=== PATIENT | male | born 1960 | race Caucasian/White ===

== ENCOUNTER 2023-09-20 11:10 | Inpatient (IN) | payer MEDICARE, MEDICAID, SELFPAY ==
[2023-09-20] VITALS (8 sets, daily range): BP systolic 104–154; BP diastolic 68–99; PULSE 80–102; RESP 12–20; TEMP 36.2–36.9; O2SAT 98–100; BMI 20.9
--- NOTE | ~2023-09-20 | CT_ITS ---
EXAMINATION: CT FACIAL BONES WITH CONTRAST CLINICAL INFORMATION: tooth pain, evaluate for possible abscess COMPARISON: None available. TECHNIQUE: CT images of the paranasal sinuses were acquired following intravenous administration of 85 mL Omnipaque 350. This CT examination was performed using dose optimization techniques as appropriate, variously including the following: *Automated exposure control *Adjustment of mA and/or kV according to patient size (this includes techniques or standardized protocols for targeted exams where dose is matched to indication/reason for exam; i.e. extremities or head) *Use of iterative reconstruction technique DLP: 263 mGy-cm COMPARISON: None available FINDINGS: Carious left mandibular second premolar tooth with asymmetric significant thickening of the adjacent left mandibular gingivobuccal soft tissues. There is stranding within the left perimandibular facial soft tissues tracking caudally into the imaged suprahyoid neck with thickening of the left platysma with partially imaged stranding within the left submandibular triangle suspicious for odontogenic infection with cellulitis. Slight asymmetric infiltration of the left buccal fat pad. Query possible peripherally enhancing fluid collection embedded within left mandibular gingival mucosa along the anterior margin of the carious tooth measuring 4 mm (image 96, series 7) which could reflect a small/developing abscess. No periapical disease nor findings to suggest mandibular osteomyelitis. Partially imaged enhancing nonpathologic size criteria reactive left level 1B lymph nodes. Partially imaged mild global cerebral volume loss. The imaged intracranial vasculature opacifies normally. The orbits are unremarkable. Slight anterior leftward nasal septal deviation with rightward deviation more posteriorly with prominent rightward bony spur. The paranasal sinuses are clear without fluid levels. The mastoid air cells and middle ear cavities are clear. Cerumen within the external auditory canals. Hypertrophic degenerative changes across the anterior atlantodental interval. Vacuum phenomenon within the right lateral atlantodental interval. CT/CT facial bones w IV con IMPRESSION: Carious left mandibular second premolar tooth likely serving as the odontogenic source for left facial cellulitis centered within the left perimandibular region. Query possible peripherally enhancing fluid collection embedded within left mandibular gingival mucosa along the anterior margin of the carious tooth measuring 4 mm (image 96, series 7) which could reflect a early/developing abscess. No periapical disease nor findings to suggest mandibular osteomyelitis. Partially imaged enhancing nonpathologic size criteria reactive left level 1B lymph nodes.
--- NOTE | ~2023-09-20 | XR_ITS ---
EXAMINATION: XR CHEST 2 VIEW CLINICAL INFORMATION: Shortness of breath, difficulty breathing COMPARISON: None TECHNIQUE: PA and lateral views of the chest obtained. FINDINGS: The lungs are hyperinflated with relative lucency in the upper lung zones and the substernal airspace. There are no pleural effusions. The cardiomediastinal silhouette is normal. XR/XR chest 2V IMPRESSION: Hyperinflation suggesting underlying COPD. Otherwise, no acute cardiopulmonary disease.
--- NOTE | 2023-09-20 11:38 | ECG_ITS ---
Test Reason : SOB Blood Pressure : / mmHG Vent. Rate : 098 BPM Atrial Rate : 000 BPM P-R Int : 000 ms QRS Dur : 102 ms QT Int : 340 ms P-R-T Axes : 000 010 068 degrees QTc Int : 434 ms Atrial fibrillation Nonspecific T wave abnormality Abnormal ECG No previous ECGs available Referred By: Nereyda Araujo Electronically Signed By:Elier Ramos
[2023-09-20 12:08] LABS: MANUAL DIFF FLAG NO
--- NOTE | 2023-09-20 12:15 | ED.SOB ---
HPI - SOB/Dyspnea General Chief Complaint: Dyspnea Stated Complaint: LOSS OF APPETITE,EXCEPTIONAL DYSPNEA 99%RA PER EMS Time Seen by Provider: 09/20/23 12:08 History of Present Illness HPI Narrative: Patient is a 62-year-old female presents today with having episodes of shortness of breath. Patient claims he has a history of atrial fibrillation in the past. There is no fever no chills. No chest pain or diaphoresis. Has a primary physician at home. No coughing or congestion or upper respiratory symptoms. No history of blood clots in the past. No leg swelling. No trauma. No travel history. Patient from home. Related Data Allergies Allergy/AdvReac Type Severity Reaction Status Date / Time No Known Allergies Allergy Verified 09/20/23 11:29 Review of Systems Review of Systems: Positive shortness of breath especially with exertion no chest pain appreciated Yes all other systems are reviewed and are negative [facility] Past Medical History Attestation statement: The following information was validated with the patient. Medical History Hypertension Mood disorder Social History Social History Smoked in Last 30 Days: No Use of substances other than those prescribed or required for medical reasons: No Advance Directives: No Advance Directives Information Provided: No Do you have a plan to hurt others: No Plan Physical Exam Vital Signs: Vital Signs: Last Vital Signs Temp 97.6 F 09/20/23 11:49 Pulse 80 09/20/23 11:49 Resp 19 09/20/23 11:49 BP 154/99 H 09/20/23 11:49 Pulse Ox 99 09/20/23 11:49 O2 Del Method Room Air 09/20/23 11:49 BMI result Body Mass Index 20.9 Appearance: Alert. Oriented X3. No acute distress. Eyes: Pupils equal, round and reactive to light. ENT: Pharynx normal. Neck: Normal inspection. Neck supple. No lymph nodes noted. No crepitus CVS: Irregularly irregular Respiratory: No respiratory distress. Breath sounds normal. No Wheezing. No rales Abdomen: Soft and nontender. No rigidity. No distention. good BS x4 Skin: Skin warm and dry. Normal skin color. Normal skin turgor. Extremities: No lower extremity edema. Neurovascular intact to all extremities. No Lacerations. No Rash Neuro: Oriented X 3. No motor deficit. No sensory deficit. Moving all extermities. No slurred speech Medical Decision Making Medical Decision Making [facility] Narrative: Patient presented with generalized malaise weakness. Very tired. Not quite right. Feels short of breath at times. My interpretation of patient's EKG shows an atrial fibrillation pattern heart rate is about 100 QRS is normal QTC is normal there has no acute ST segment elevation patient's feels very weak and tired electrolytes were checked. It turns out patient's sodium is 122. On review patient's medication he is on hydrochlorothiazide. Will ask patient to stop the medication. Will admit the patient for further monitoring. Currently in stable condition. Patient unlikely to have PE is D-dimer is grossly negative after age adjustment. BNP is 120 no evidence for congestive heart failure. Patient's hemoglobin is 12.8 there is no evidence for anemia. Differential Diagnosis Differential Diagnoses: The differential diagnosis associated with the presentation includes Hyponatremia, electrolytes disturbance, rhabdo, hypothyroid, ACS, AFib, upper respiratory infection, COVID, congestive heart failure, PE Admission/Observation Consideration of admission/observation: Escalation of care including admission/observation considered Consult Healthcare Provider Management of the patient was discussed with: Hospitalist Lab Data [facility] Lab Attestation statement: I reviewed the patient's lab results. 09/20/23 12:03 09/20/23 12:03 Labs: Lab Results 09/20/23 Range/Units 12:03 WBC 7.3 (4.8-10.8) X10*3/uL RBC 4.36 L (4.60-5.80) X10*6/uL Hgb 12.8 L (14.0-18.0) g/dl Hct 38.2 L (42.0-52.0) % MCV 87.6 (80.0-98.0) fL MCH 29.4 (27.0-33.0) pg MCHC 33.5 (31.0-36.0) g/dl RDW 12.3 (11.0-16.0) % Plt Count 176 (160-400) X10*3/uL MPV 176.0 H (9.4-12.4) fL Immature Gran % (Auto) 1.0 H (0.0-0.4) % Neut % (Auto) 71.4 (45-73) % Lymph % (Auto) 15.1 L (20-40) % [place] % (Auto) 11.5 H (2-11) % Eos % (Auto) 0.5 (0-4) % Baso % (Auto) 0.5 (0-2) % Lymph # (Auto) 1.1 L (1.2-4.9) X10*3/uL [place] # (Auto) 0.8 (0.1-1.2) X10*3/uL Eos # (Auto) 0.0 (0.0-0.4) X10*3/uL Baso # (Auto) 0.0 (0.0-0.2) X10*3/uL Abs Immat Gran (auto) 0.07 H (0.00-0.03) X10*3/uL Absolute Neuts (auto) 5.2 (2.0-8.3) x10*3/uL Absolute Nucleated RBC 0.000 (0.0-0.012) X10*3/uL Nucleated RBC % (auto) 0.0 (0.0-0.2) /100WBC PT 11.2 (11.1-13.3) SEC INR 0.9 (0.9-1.1) APTT 28.8 (26.0-36.8) SEC D-Dimer High Sensitivty 276 NG/ML Sodium 122 L (135-145) mmol/L Potassium 4.3 (3.3-5.1) mmol/L Chloride 85 L (96-108) mmol/L Carbon Dioxide 28 (22-29) mmol/L Anion Gap 13 (12-20) BUN 7 L (9-16) mg/dL Creatinine 0.88 (0.5-1.4) mg/dL Estim Creat Clear Calc 83.9 Estimated GFR > 60 Random Glucose 100 (60-115) mg/dL Calcium 10.2 (8.4-10.2) mg/dL Total Bilirubin 1.0 (0.0-1.0) mg/dL AST 14 (5-37) U/L ALT 17 (0-40) U/L Alkaline Phosphatase 64 (39-117) U/L Troponin I High Sens 5.2 (<3.5-35.0) ng/L B-Natriuretic Peptide 120 H (<100) pg/mL Total Protein 7.4 (6.5-8.0) g/dL Albumin 4.5 (3.5-5.0) g/dL TSH 1.37 (0.32-4.0) uIU/mL Independent Interpretation I performed an independent interpretation of an: EKG (Atrial fibrillation heart rate as about 100) Radiology Impression Discussion of test interpretation with radiology: I have reviewed the radiologist's reading. External Record Review External record reviewed: Office record Outpatient EKG reviewed outpatient medication reviewed Chronic Conditions Patient?s care impacted by: Hypertension Atrial fibrillation, hypertension Discharge Plan Discharge Clinical Impression: Acute hyponatremia Patient Disposition: Admitted As Inpatient
[2023-09-20 12:16] LABS: INTERNATIONAL NORM RATIO 0.9 (0.9-1.1); Prothrombin Time 11.2 SEC (11.1-13.3)
[2023-09-20 12:19] LABS: Partial Thromboplastin Time 28.8 SEC (26.0-36.8)
[2023-09-20 12:23] LABS: Alanine Aminotransferase 17 U/L (0-40); Albumin Level 4.5 g/dL (3.5-5.0); Alkaline Phosphatase 64 U/L (39-117); Anion Gap 13 (12-20); Aspartate Amino Transferase 14 U/L (5-37); Blood Urea Nitrogen 7 mg/dL (9-16); Calcium 10.2 mg/dL (8.4-10.2); Carbon Dioxide 28 mmol/L (22-29); Chloride 85 mmol/L (96-108); Creatinine Clr Calc Pharmacy 83.9; Estimated Glomerular Filt Rate > 60; Glucose Random 100 mg/dL (60-115); Potassium 4.3 mmol/L (3.3-5.1); Sodium 122 mmol/L (135-145); Total Protein 7.4 g/dL (6.5-8.0)
[2023-09-20 12:28] LABS: B Type Natriuretic Peptide 120 pg/mL (<100)
[2023-09-20 12:42] LABS: D Dimer High Sensitivity 276 NG/ML
[2023-09-20 12:54] LABS: Basophils Percent Auto 0.5 % (0-2); Eosinophils Percent Auto 0.5 % (0-4); Hematocrit 38.2 % (42.0-52.0); Imm Gran Abs Auto 0.07 X10*3/uL (0.00-0.03); Lymphocytes Absolute Auto 1.1 X10*3/uL (1.2-4.9); Lymphocytes Percent Auto 15.1 % (20-40); Mean Corpuscular Volume 87.6 fL (80.0-98.0); Monocytes Absolute Auto 0.8 X10*3/uL (0.1-1.2); Monocytes Percent Auto 11.5 % (2-11); Neutrophils Absolute Auto 5.2 x10*3/uL (2.0-8.3); Neutrophils Percent Auto 71.4 % (45-73); Red Blood Count 4.36 X10*6/uL (4.60-5.80); Red Cell Distribution Width 12.3 % (11.0-16.0)
[2023-09-20 12:55] LABS: Hemoglobin 12.8 g/dl (14.0-18.0); Mean Corpuscular HGB Conc 33.5 g/dl (31.0-36.0); Mean Corpuscular Hemoglobin 29.4 pg (27.0-33.0); Platelet Count 176 X10*3/uL (160-400); White Blood Count 7.3 X10*3/uL (4.8-10.8)
[2023-09-20 13:01] LABS: Troponin-I High Sensitivity 5.2 ng/L (<3.5-35.0)
--- NOTE | 2023-09-20 13:09 | P.HPHOSP_ITS ---
History of Present Illness Date of Service: 09/20/23 Chief Complaint: Generalized weakness This is a 62-year-old male with pertinent history of mood disorder, hypertension who presents to the emergency department for evaluation of generalized weakness. Patient states he has not been feeling well for some time . States that over the last 3 days he has been feeling weak with generalized fatigability. Also has been having difficulty walking long distances due to weakness/dyspnea. No history of asthma or COPD. Not on home inhalers. No history of CHF. No orthopnea, PND or leg edema. No cough. No fever or chills. Patient denies chest discomfort, palpitations, abdominal pain, changes in urinary or bowel habits. In the emergency department, sodium was found to be 122 Review of Systems 2 Constitutional: Constitutional: Reports fatigue, Reports malaise and Reports poor appetite Cardiovascular: Cardiovascular: Reports no additional cardiovascular complaints Respiratory: Respiratory: Reports no additional respiratory complaints Gastrointestinal: Gastrointestinal: Reports no additional gastrointestinal complaints Genitourinary: Genitourinary: Reports no additional male genitourinary complaints Endocrine: Endocrine: Reports fatigue [facility] Medical History Hypertension Mood disorder Pertinent family history: No family history of early CAD Social History Smoked in Last 30 Days: No Use of substances other than those prescribed or required for medical reasons: No Advance Directives: No Advance Directives Information Provided: No Do you have a plan to hurt others: No Plan Meds Allergies Allergy/AdvReac Type Severity Reaction Status Date / Time No Known Allergies Allergy Verified 09/20/23 11:29 Home Medications ?Medication ?Instructions ?Recorded ?Confirmed ?Last Taken ?Type amlodipine 10 mg tablet 10 mg PO DAILY 09/20/23 09/20/23 09/20/23 08:00 History bupropion HCl 200 mg tablet,12 hr 200 mg PO BID 09/20/23 09/20/23 09/20/23 08:00 History sustained-release clonazepam 0.5 mg tablet 1 mg PO QID 09/20/23 09/20/23 09/20/23 08:00 History hydrochlorothiazide 25 mg tablet 25 mg PO DAILY 09/20/23 09/20/23 09/20/23 08:00 History lisinopril 10 mg tablet 10 mg PO DAILY 09/20/23 09/20/23 09/20/23 08:00 History Physical Exam 2 Vital Signs and Narrative: Vital Signs: Last Vital Signs Temp 97.6 F 09/20/23 11:49 Pulse 80 09/20/23 11:49 Resp 19 09/20/23 11:49 BP 154/99 H 09/20/23 11:49 Pulse Ox 99 09/20/23 11:49 O2 Del Method Room Air 09/20/23 11:49 BMI result Body Mass Index 20.9 Middle-aged male lying in bed in no distress Neck supple, no JVD Regular rate and rhythm, S1-S2 heard Regular breath sounds bilaterally, no wheezing or crackles appreciated Abdomen soft nontender, no guarding, no rigidity Patient is awake, alert and oriented to self, place, time and person ; no focal motor deficit Psych: Normal mood No pedal edema Results Labs 09/20/23 12:03 09/20/23 12:03 Labs: Laboratory Results - last 24 hr 09/20/23 12:03 MCV 87.6 MCH 29.4 MCHC 33.5 RDW 12.3 Plt Count 176 MPV 176.0 H Immature Gran % (Auto) 1.0 H Neut % (Auto) 71.4 Lymph % (Auto) 15.1 L [place] % (Auto) 11.5 H Eos % (Auto) 0.5 Baso % (Auto) 0.5 Lymph # (Auto) 1.1 L [place] # (Auto) 0.8 Eos # (Auto) 0.0 Baso # (Auto) 0.0 Abs Immat Gran (auto) 0.07 H Absolute Neuts (auto) 5.2 Absolute Nucleated RBC 0.000 Nucleated RBC % (auto) 0.0 PT 11.2 INR 0.9 APTT 28.8 D-Dimer High Sensitivty 276 Anion Gap 13 Estim Creat Clear Calc 83.9 Estimated GFR > 60 Random Glucose 100 Calcium 10.2 Total Bilirubin 1.0 AST 14 ALT 17 Alkaline Phosphatase 64 Troponin I High Sens 5.2 B-Natriuretic Peptide 120 H Total Protein 7.4 Albumin 4.5 Assessment and Plan (1) Hyponatremia: Status: Acute Plan This is a 62-year-old male with pertinent history of mood disorder, hypertension who presents to the emergency department for evaluation of generalized weakness. #. Symptomatic Hyponatremia: Patient received fluids in the ER. Urine studies pending. Hold hydrochlorothiazide. Closely monitor serum sodium. #. Mood disorder: Continue home mood stabilizers #. Hypertension: Hold hydrochlorothiazide in the setting of hyponatremia DVT prophylaxis: Lovenox Full code Admit as inpatient and will require two night minimum hospital stay for close monitoring of serum sodium (as above), which is not possible in a lesser acute setting. Quality Stroke Does the patient have a stroke diagnosis?: No VTE Prior VTE?: No VTE Risk Level:: Medical - moderate - high VTE Device Contraindication: Treatment Not Indicated VTE Drug Contraindication: N/A - Med Ordered
[2023-09-20 13:13] LABS: Thyroid Stimulating Hormone 1.37 uIU/mL (0.32-4.0)
--- NOTE | 2023-09-20 13:59 | PHA.MEDREC ---
Pharmacy Consult ? Medication Reconciliation Pharmacy has completed the medication reconciliation. Confirmed medications with patient.
[2023-09-20 14:19] LABS: Osmolality, Serum 256 mosm/kg (281-305)
[2023-09-20] MEDS: 0.9 % Sodium Chloride 500 ML 999 ML IV (15:02)
[2023-09-20] MEDS: Enoxaparin Sodium 40 MG/0.4 ML SYRINGE SUBCUT (15:02)
[2023-09-20] MEDS: 0.9 % Sodium Chloride Flush 3 ML SYRINGE IVFLUSH (15:02)
--- NOTE | 2023-09-20 15:39 | PC.NURSE ---
alert and oriented with even and unlabored respirations. IV fluids infused, resting quietly in room watching tv.
--- NOTE | 2023-09-20 16:15 | MHC.EDTECH ---
THIS PCT ASSUMED CARE OF PATIENT AT 1500 ,VITALS TAKEN ,PATIENT STILL HAS HIS SHOES AND JEANS ON ,REFUSED TO TAKE THEM OFF.
--- NOTE | 2023-09-20 18:22 | PC.NURSE ---
complaining of left sided facial pain - states he has ongoing dental issues and feels that food got stuck in his tooth. provided with toothbrush per request to try to remove food. swelling noted to left jaw, pain medication ordered. respiratory at bedside for treatment.
[2023-09-20] MEDS: Albuterol/Iprat 2.5/0.5MG 3 ML AMPUL.NEB INHALE (18:25)
[2023-09-20] MEDS: Ketorolac Tromethamine 30 MG/ML VIAL IVPUSH (18:41)
[2023-09-20] MEDS: clonazePAM 1 MG TABLET PO ×2 (18:41→21:18)
[2023-09-20 19:23] LABS: Osmolality Urine 182 mosm/kg (373-1093)
[2023-09-20 19:24] LABS: Sodium Urine Random < 20.0 mmol/L
[2023-09-20 19:30] LABS: Anion Gap 16 (12-20); Blood Urea Nitrogen 9 mg/dL (9-16); Calcium 9.8 mg/dL (8.4-10.2); Carbon Dioxide 26 mmol/L (22-29); Chloride 87 mmol/L (96-108); Creatinine Clr Calc Pharmacy 87.9; Estimated Glomerular Filt Rate > 60; Glucose Random 156 mg/dL (60-115); Potassium 3.5 mmol/L (3.3-5.1); Sodium 125 mmol/L (135-145)
--- NOTE | 2023-09-20 19:44 | PC.NURSE ---
pt off unit to CT scan
[2023-09-20] MEDS: iohexoL 350 MG/ML 100 ML INFUS..BTL 85 ML IV (19:48)
[2023-09-21] MEDS: 0.9 % Sodium Chloride Flush 3 ML SYRINGE IVFLUSH ×2 (00:15→08:25)
[2023-09-21] MEDS: Ibuprofen 600 MG TABLET PO (02:41)
[2023-09-21 05:33] LABS: MANUAL DIFF FLAG NO
[2023-09-21 05:38] LABS: Basophils Percent Auto 0.4 % (0-2); Eosinophils Percent Auto 0.3 % (0-4); Hemoglobin 13.1 g/dl (14.0-18.0); Imm Gran Abs Auto 0.03 X10*3/uL (0.00-0.03); Imm Gran Pct Auto 0.4 % (0.0-0.4); Lymphocytes Absolute Auto 1.3 X10*3/uL (1.2-4.9); Lymphocytes Percent Auto 19.2 % (20-40); Mean Corpuscular HGB Conc 37.4 g/dl (31.0-36.0); Mean Corpuscular Hemoglobin 33.7 pg (27.0-33.0); Mean Platelet Volume 7.8 fL (9.4-12.4); Monocytes Absolute Auto 1.1 X10*3/uL (0.1-1.2); Monocytes Percent Auto 15.5 % (2-11); Neutrophils Absolute Auto 4.3 x10*3/uL (2.0-8.3); Neutrophils Percent Auto 64.2 % (45-73); Platelet Count 279 X10*3/uL (160-400); Red Blood Count 3.89 X10*6/uL (4.60-5.80); Red Cell Distribution Width 12.4 % (11.0-16.0); White Blood Count 6.8 X10*3/uL (4.8-10.8)
[2023-09-21 05:52] LABS: Anion Gap 12 (12-20); Blood Urea Nitrogen 8 mg/dL (9-16); Calcium 9.3 mg/dL (8.4-10.2); Carbon Dioxide 24 mmol/L (22-29); Chloride 91 mmol/L (96-108); Estimated Glomerular Filt Rate > 60; Glucose Random 144 mg/dL (60-115); Potassium 3.4 mmol/L (3.3-5.1); Sodium 124 mmol/L (135-145)
[2023-09-21 06:23] VITALS: BP 150/84; PULSE 96; RESP 16; TEMP 36.8; O2SAT 95
--- NOTE | 2023-09-21 07:00 | CA_ITS ---
Transthoracic Echocardiogram Patient (Last, First, Middle): Beltran Lopes G Gender: Male Date of : 1960 Age: 62 Procedure Date: 09/21/2023 Procedure Type: Transthoracic Echocardiogram Location: S3E Height: 182.88 cm Weight: 69.4 kg BSA: 1.90 m2 Heart Rate: bpm BP: 114 / 73 mmHg Advertising Teacher: SB Referring MD: Cesia Littlejohn MD Symptoms: dyspnea on exertion Study Quality: Adequate Conclusions: - Normal left ventricular size, thickness, systolic function, and wall motion. The visually estimated ejection fraction is between 55-60%. Diastolic function is normal for age. - Normal right ventricular cavity size and systolic function. Findings Left Ventricle Normal left ventricular size, thickness, systolic function, and wall motion. The visually estimated ejection fraction is between 55-60%. Diastolic function is normal for age. Right Ventricle Normal right ventricular cavity size and systolic function. Atria The left atrium is normal in size. Aortic Valve There is a normal trileaflet aortic valve. There is no aortic valve stenosis. There is no aortic valve regurgitation. Mitral Valve The mitral valve appears normal. There is trace mitral valve regurgitation. There is no mitral valve stenosis. Pulmonic Valve The pulmonic valve is likely normal. Tricuspid Valve Likely normal tricuspid valve structure and function. Normal right atrial pressure. There is no evidence of pulmonary hypertension. Great Vessels All visible segments of the aorta are normal in size. The pulmonary artery was not well visualized. Venous The inferior vena cava is normal in size and collapses greater than 50% with inspiration. Pericardium/Pleural There is no evidence of pericardial effusion. Prior Study Comparison No prior study available for comparison. Measurements 2D Linear Measurements IVSd: 0.83 0.6-0.9/0.6-1.0 cm LVIDd: 4.49 3.9-5.3/4.2-5.9 cm LVIDd Index: 2.36 2.4-3.2/2.2-3.1 cm/m2 LVIDs: 3.21 2.0-3.6 cm LVPWd: 0.71 0.7-1.1 cm LA Diam: 3.30 2.7-3.8/3.0-4.0 cm LAIDs Index: 1.74 1.5-2.3 cm/m2 LV Mass: 133.09 67-162/88-224 g LV Mass Index: 70.05 43-95/49-115 g/m2 LVOT Diam: 2.50 3.0+(-)1.3 cm 2D Systolic Function EF 4C: 53.80 >55% EF 2C: 68.00 >55% EF BiP: 61.70 >55% Mitral Valve MV Pk E: 0.81 MV Decel Time: 209.00 Aortic Valve AoV Pk David: 1.53 AoV Pk Grad: 9.00 LVOT LVOT Pk David: 1.10 LVOT Mn David: 0.76 LVOT VTI: 0.17 LVOT Pk Grad: 5.00 LVOT Mn Grad: 3.00 LVOT Diam: 2.50 LVOT Area: 4.91 Diastolic Function MV Pk E: 0.81 Right Ventricle TAPSE (mm): 19.40 TVS' David: 14.40 Tricuspid Valve TR Pk David: 1.95 TR Pk Grad: 15.00 RA Press: 3.00 RVSP: 18.00 Great Vessels Aorta Sinus of Valsalva: 3.40 2.0-3.5 cm Ao Asc: 3.20 2.1-3.4 cm Pulmonary Valve PV Pk David: 0.78 Peak PV Grad: 2.00 Updated in Other Vendor System with Status of Final Elier Ramos MD electronically signed on 09/22/2023 7:52:56 PM with status of Final
[2023-09-21 07:12] VITALS: PULSE 96; RESP 16; O2SAT 99
[2023-09-21] MEDS: Albuterol/Iprat 2.5/0.5MG 3 ML AMPUL.NEB INHALE ×2 (07:12→11:41)
[2023-09-21 08:00] VITALS: BP 114/73; PULSE 100; RESP 12; TEMP 36.6; O2SAT 99
[2023-09-21] MEDS: clonazePAM 1 MG TABLET PO ×3 (08:23→16:59)
[2023-09-21] MEDS: buPROPion HCl XL 150 MG TAB.ER.24H 450 MG PO (08:23)
[2023-09-21] MEDS: lisinopriL 10 MG TABLET PO (08:23)
[2023-09-21] MEDS: amLODIPine Besylate 10 MG TABLET PO (08:23)
[2023-09-21 08:26] VITALS: BMI 20.9
--- NOTE | 2023-09-21 09:03 | HO.PM.IMPN ---
Subjective Subjective Date of Service: 09/21/23 Interval History: No significant nursing events overnight. Complaining of left tooth pain. Continues to be weak with easy fatigability Constitutional Constitutional: Reports fatigue, Reports malaise and Reports poor appetite Cardiovascular Cardiovascular: Reports no additional cardiovascular complaints Respiratory Respiratory: Reports no additional respiratory complaints Gastrointestinal Gastrointestinal: Reports no additional gastrointestinal complaints Genitourinary Genitourinary: Reports no additional male genitourinary complaints Endocrine Endocrine: Reports fatigue Physical Exam Vital Signs: Vital Signs: Last Vital Signs Temp 98 F 09/21/23 08:00 Pulse 100 09/21/23 08:00 Resp 12 09/21/23 08:00 BP 114/73 09/21/23 08:00 Pulse Ox 99 09/21/23 08:00 O2 Del Method Room Air 09/21/23 08:00 BMI result Body Mass Index 20.9 Middle-aged male lying in bed in no distress Neck supple, no JVD, left facial swelling with erythema and warmth Regular rate and rhythm, S1-S2 heard Regular breath sounds bilaterally, no wheezing or crackles appreciated Abdomen soft nontender, no guarding, no rigidity Patient is awake, alert and oriented to self, place, time and person ; no focal motor deficit Psych: Normal mood No pedal edema Objective Data Active Medications Acetaminophen (Acetaminophen 325 Mg Tablet) 650 mg PO Q6H PRN PRN Reason: Pain, Mild (Pain Scale 1-3), fever or headache Albuterol/Ipratropium (Albuterol/Iprat 2.5/0.5mg 3 Ml Ampul.Neb) 3 ml INHALE RQ4H WHILE AWAKE REPLACED BY [facility] Last Admin: 09/21/23 07:12 Dose: 3 ml Documented By: ROB Albuterol/Ipratropium (Albuterol/Iprat 2.5/0.5mg 3 Ml Ampul.Neb) 3 ml INHALE Q4H PRN PRN Reason: Wheezing Amlodipine Besylate (Amlodipine Besylate 10 Mg Tablet) 10 mg PO DAILY REPLACED BY [facility]; Protocol Last Admin: 09/21/23 08:23 Dose: 10 mg Documented By: DRE Bupropion HCl (Bupropion Hcl Xl 150 Mg Tab.Er.24h) 450 mg PO DAILY REPLACED BY [facility] Last Admin: 09/21/23 08:23 Dose: 450 mg Documented By: DRE Calcium Carbonate (Calcium Carbonate 750 Mg Tab.Chew) 750 mg PO Q4H PRN PRN Reason: Heartburn Clonazepam (Clonazepam 1 Mg Tablet) 1 mg PO QID REPLACED BY [facility] Last Admin: 09/21/23 08:23 Dose: 1 mg Documented By: DRE Enoxaparin Sodium (Enoxaparin Sodium 40 Mg/0.4 Ml Syringe) 40 mg SUBCUT Q24H REPLACED BY [facility] Last Admin: 09/20/23 15:02 Dose: 40 mg Documented By: DALTON Lisinopril (Lisinopril 10 Mg Tablet) 10 mg PO DAILY REPLACED BY [facility]; Protocol Last Admin: 09/21/23 08:23 Dose: 10 mg Documented By: DRE Magnesium Hydroxide (Milk Of Magnesia 30 Ml Oral.Susp) 30 ml PO DAILY PRN PRN Reason: Constipation Melatonin (Melatonin 3 Mg Tablet) 6 mg PO BEDTIME PRN PRN Reason: Insomnia Ondansetron HCl (Ondansetron Hcl 4 Mg/2 Ml Vial) 4 mg IVPUSH Q8H PRN PRN Reason: Nausea and Vomiting Sodium Chloride (0.9 % Sodium Chloride Flush 3 Ml Syringe) 3 ml IVFLUSH QSHIFT REPLACED BY [facility] Last Admin: 09/21/23 08:25 Dose: 3 ml Documented By: DRE Labs 09/21/23 05:18 09/21/23 05:18 Labs: Laboratory Results - last 24 hr 09/20/23 09/20/23 09/20/23 12:03 13:50 19:06 MCV 87.6 MCH 29.4 MCHC 33.5 RDW 12.3 Plt Count 176 MPV 176.0 H Immature Gran % (Auto) 1.0 H Neut % (Auto) 71.4 Lymph % (Auto) 15.1 L [place] % (Auto) 11.5 H Eos % (Auto) 0.5 Baso % (Auto) 0.5 Lymph # (Auto) 1.1 L [place] # (Auto) 0.8 Eos # (Auto) 0.0 Baso # (Auto) 0.0 Abs Immat Gran (auto) 0.07 H Absolute Neuts (auto) 5.2 Absolute Nucleated RBC 0.000 Nucleated RBC % (auto) 0.0 PT 11.2 INR 0.9 APTT 28.8 D-Dimer High Sensitivty 276 Anion Gap 13 Estim Creat Clear Calc 83.9 Estimated GFR > 60 Random Glucose 100 Osmolality 256 L Calcium 10.2 Total Bilirubin 1.0 AST 14 ALT 17 Alkaline Phosphatase 64 Troponin I High Sens 5.2 B-Natriuretic Peptide 120 H Total Protein 7.4 Albumin 4.5 TSH 1.37 Urine Osmolality 182 L Ur Random Sodium < 20.0 09/20/23 09/21/23 19:09 05:18 MCV 90.0 MCH 33.7 H MCHC 37.4 H RDW 12.4 Plt Count 279 D MPV 7.8 L Immature Gran % (Auto) 0.4 Neut % (Auto) 64.2 Lymph % (Auto) 19.2 L [place] % (Auto) 15.5 H Eos % (Auto) 0.3 Baso % (Auto) 0.4 Lymph # (Auto) 1.3 [place] # (Auto) 1.1 Eos # (Auto) 0.0 Baso # (Auto) 0.0 Abs Immat Gran (auto) 0.03 Absolute Neuts (auto) 4.3 Absolute Nucleated RBC 0.000 Nucleated RBC % (auto) 0.0 PT INR APTT D-Dimer High Sensitivty Anion Gap 16 12 Estim Creat Clear Calc 87.9 107.0 Estimated GFR > 60 > 60 Random Glucose 156 H 144 H Osmolality Calcium 9.8 9.3 Total Bilirubin AST ALT Alkaline Phosphatase Troponin I High Sens B-Natriuretic Peptide Total Protein Albumin TSH Urine Osmolality Ur Random Sodium Assessment and Plan (1) Hyponatremia: Status: Acute Plan This is a 62-year-old male with pertinent history of mood disorder, hypertension who presents to the emergency department for evaluation of generalized weakness. #. Symptomatic Hyponatremia: Hold hydrochlorothiazide. On IV fluids. Consulted Nephrology, appreciate assistance. Closely monitor sodium #. Left facial cellulitis with left tooth infection: Initiated IV Unasyn (started: 09/20). Consulting General surgery for possible abscess. Will need outpatient follow-up with dentist #. Mood disorder: Continue home mood stabilizers #. Hypertension: Hold hydrochlorothiazide in the setting of hyponatremia DVT prophylaxis: Lovenox Full code Reason for continued hospitalization: close monitoring of serum sodium and IV antibiotics which is not possible in a lesser acute setting. Quality Stroke Does the patient have a stroke diagnosis?: No VTE Prior VTE?: No VTE Risk Level:: Medical - moderate - high VTE Device Contraindication: Treatment Not Indicated VTE Drug Contraindication: N/A - Med Ordered
--- NOTE | 2023-09-21 10:12 | PM.CNGS ---
History of Present Illness Consult details Consult date: 09/21/23 Narrative: 62-year-old male admitted for weakness and hyponatremia, referred to me because of a possible dental abscess with facial cellulitis. He was admitted yesterday via the ER because of weakness which she has been noticing for several weeks now. He was noted to be severely hyponatremic likely because of him being on a diuretic with hydrochlorothiazide He had also mentioned that he has having this pain on the left lower molar area several days and had noticed some redness of the area and swelling for the past 2-3 days He admits to having dental caries on this seemed to from over 20 years ago. He says that this had been filled at that time but he says that over the years, the dental filling has been breaking down over the years and he has had dental caries again for several months now. Review of Systems Constitutional: Constitutional: Denies chills and Denies fever(s) Cardiovascular: Cardiovascular: Denies chest pain, Denies chest pain at rest and Denies dyspnea on exertion Respiratory: Respiratory: Denies dyspnea on exertion Gastrointestinal: Gastrointestinal: Denies abdominal pain Genitourinary: Genitourinary: Denies difficulty urinating Musculoskeletal: Musculoskeletal: Reports muscle weakness PMFSH Past Medical History Medical History (Updated 09/21/23 @ 10:16 by Joel Daniels MD) Dental caries Hypertension Mood disorder Social History Social History Household Members: Friend(s) Housing: House Do you presently have visiting nurse or other home services: No Patient Tobacco Use Status: Never used Tobacco service: No Meds Allergies Allergy/AdvReac Type Severity Reaction Status Date / Time No Known Allergies Allergy Verified 09/20/23 11:29 Active Medications: Current Medications Acetaminophen (Acetaminophen 325 Mg Tablet) 650 mg PO Q6H PRN PRN Reason: Pain, Mild (Pain Scale 1-3), fever or headache Albuterol/Ipratropium (Albuterol/Iprat 2.5/0.5mg 3 Ml Ampul.Neb) 3 ml INHALE RQ4H WHILE AWAKE ZAN Last Admin: 09/21/23 07:12 Dose: 3 ml Albuterol/Ipratropium (Albuterol/Iprat 2.5/0.5mg 3 Ml Ampul.Neb) 3 ml INHALE Q4H PRN PRN Reason: Wheezing Amlodipine Besylate (Amlodipine Besylate 10 Mg Tablet) 10 mg PO DAILY [facility]; Protocol Last Admin: 09/21/23 08:23 Dose: 10 mg Bupropion HCl (Bupropion Hcl Xl 150 Mg Tab.Er.24h) 450 mg PO DAILY [facility] Last Admin: 09/21/23 08:23 Dose: 450 mg Calcium Carbonate (Calcium Carbonate 750 Mg Tab.Chew) 750 mg PO Q4H PRN PRN Reason: Heartburn Clonazepam (Clonazepam 1 Mg Tablet) 1 mg PO QID [facility] Last Admin: 09/21/23 08:23 Dose: 1 mg Enoxaparin Sodium (Enoxaparin Sodium 40 Mg/0.4 Ml Syringe) 40 mg SUBCUT Q24H [facility] Last Admin: 09/20/23 15:02 Dose: 40 mg Ampicillin Sodium/Sulbactam (Sodium 3 gm/ Sodium Chloride) 100 mls @ 200 mls/hr IV Q6H [facility] Sodium Chloride (Ns) 1,000 mls @ 100 mls/hr IVCONT .Q10H [facility] Lisinopril (Lisinopril 10 Mg Tablet) 10 mg PO DAILY [facility]; Protocol Last Admin: 09/21/23 08:23 Dose: 10 mg Magnesium Hydroxide (Milk Of Magnesia 30 Ml Oral.Susp) 30 ml PO DAILY PRN PRN Reason: Constipation Melatonin (Melatonin 3 Mg Tablet) 6 mg PO BEDTIME PRN PRN Reason: Insomnia Ondansetron HCl (Ondansetron Hcl 4 Mg/2 Ml Vial) 4 mg IVPUSH Q8H PRN PRN Reason: Nausea and Vomiting Sodium Chloride (0.9 % Sodium Chloride Flush 3 Ml Syringe) 3 ml IVFLUSH QSHIFT [facility] Last Admin: 09/21/23 08:25 Dose: 3 ml Home Medications ?Medication ?Instructions ?Recorded ?Confirmed ?Last Taken ?Type amlodipine 10 mg tablet 10 mg PO DAILY 09/20/23 09/20/23 09/20/23 08:00 History bupropion HCl 200 mg tablet,12 hr 200 mg PO BID 09/20/23 09/20/23 09/20/23 08:00 History sustained-release clonazepam 0.5 mg tablet 1 mg PO QID 09/20/23 09/20/23 09/20/23 08:00 History hydrochlorothiazide 25 mg tablet 25 mg PO DAILY 09/20/23 09/20/23 09/20/23 08:00 History lisinopril 10 mg tablet 10 mg PO DAILY 09/20/23 09/20/23 09/20/23 08:00 History Physical Exam Vital Signs: Vital Signs: Last Vital Signs Temp 98 F 09/21/23 08:00 Pulse 100 09/21/23 08:00 Resp 12 09/21/23 08:00 BP 114/73 09/21/23 08:00 Pulse Ox 99 09/21/23 08:00 O2 Del Method Room Air 09/21/23 08:00 BMI result Body Mass Index 20.9 Const: General: comfortable and no acute distress Orientation/consciousness: patient oriented x3 HEENT: Other: On the left base is note of some cellulitic changes along with tenderness on the left lower jaw area at the occasional of the molars, with some edema Neck: Neck: Yes no lymphadenopathy Resp: Auscultation: clear to auscultation bilaterally Cardio: Rhythm: regular rhythm GI: Palpation (GI): Soft to palpation, nontender and no guarding Neuro: General: patient oriented x3 Results Labs 09/23/23 06:08 09/23/23 06:08 Labs: Abnormal lab results 09/20/23 09/20/23 09/20/23 Range/Units 12:03 13:50 19:06 RBC 4.36 L (4.60-5.80) X10*6/uL Hgb 12.8 L (14.0-18.0) g/dl Hct 38.2 L (42.0-52.0) % MCH (27.0-33.0) pg MCHC (31.0-36.0) g/dl MPV 176.0 H (9.4-12.4) fL Immature Gran % (Auto) 1.0 H (0.0-0.4) % Lymph % (Auto) 15.1 L (20-40) % [place] % (Auto) 11.5 H (2-11) % Lymph # (Auto) 1.1 L (1.2-4.9) X10*3/uL Abs Immat Gran (auto) 0.07 H (0.00-0.03) X10*3/uL Sodium 122 L (135-145) mmol/L Chloride 85 L (96-108) mmol/L BUN 7 L (9-16) mg/dL Random Glucose (60-115) mg/dL Osmolality 256 L (281-305) mosm/kg B-Natriuretic Peptide 120 H (<100) pg/mL Urine Osmolality 182 L (373-1093) mosm/kg 09/20/23 09/21/23 Range/Units 19:09 05:18 RBC 3.89 L (4.60-5.80) X10*6/uL Hgb 13.1 L (14.0-18.0) g/dl Hct 35.0 L (42.0-52.0) % MCH 33.7 H (27.0-33.0) pg MCHC 37.4 H (31.0-36.0) g/dl MPV 7.8 L (9.4-12.4) fL Immature Gran % (Auto) (0.0-0.4) % Lymph % (Auto) 19.2 L (20-40) % [place] % (Auto) 15.5 H (2-11) % Lymph # (Auto) (1.2-4.9) X10*3/uL Abs Immat Gran (auto) (0.00-0.03) X10*3/uL Sodium 125 L 124 L (135-145) mmol/L Chloride 87 L 91 L (96-108) mmol/L BUN 8 L (9-16) mg/dL Random Glucose 156 H 144 H (60-115) mg/dL Osmolality (281-305) mosm/kg B-Natriuretic Peptide (<100) pg/mL Urine Osmolality (373-1093) mosm/kg Short CBC 09/20/23 09/21/23 Range/Units 12:03 05:18 WBC 7.3 6.8 (4.8-10.8) X10*3/uL Hgb 12.8 L 13.1 L (14.0-18.0) g/dl Hct 38.2 L 35.0 L (42.0-52.0) % Plt Count 176 279 D (160-400) X10*3/uL BMP 09/20/23 09/20/23 09/21/23 12:03 19:09 05:18 Sodium 122 L 125 L 124 L Potassium 4.3 3.5 3.4 Chloride 85 L 87 L 91 L Carbon Dioxide 28 26 24 BUN 7 L 9 8 L Creatinine 0.88 0.84 0.69 Calcium 10.2 9.8 9.3 Liver Function 09/20/23 Range/Units 12:03 Total Bilirubin 1.0 (0.0-1.0) mg/dL AST 14 (5-37) U/L ALT 17 (0-40) U/L Alkaline Phosphatase 64 (39-117) U/L Albumin 4.5 (3.5-5.0) g/dL All other labs normal. Assessment and Plan (1) Dental caries: Status: Acute He is dental caries in the left molar along with what appears to be early/mouth abscess formation causing cellulitis of the left cheek. I explained to him that this molar probably should be extracted down the line and he has to be following up with his dentist. I told him that we [facility] has a good dental program and instructed him to establish a relationship with them. In the meantime, he has been started on IV antibiotics. He is being treated for hyponatremia with a sodium of 122 likely because of his diuretic use. If his cellulitis and says worsens, he probably should see a dentist sooner. Procedures Date of Service Date of Service: 09/25/23
[2023-09-21] MEDS: Ampicillin Sodium/Sulbactam Na 3 GM in 0.9 % Sodium Chloride 100 ML IV ×3 (10:15→20:20)
[2023-09-21] MEDS: 0.9 % Sodium Chloride 1,000 ML 100 ML IVCONT ×2 (10:15→21:52)
[2023-09-21 11:41] VITALS: PULSE 100; RESP 12; O2SAT 98
--- NOTE | 2023-09-21 12:05 | PM.CNNEP ---
History of Present Illness Reason for Consult Consult date: 09/21/23 Reason for consult: Hyponatremia Chief Complaint Chief complaint: Weakness History of Present Illness Narrative: 62-year-old male with pertinent history of mood disorder, hypertension who presents to the emergency department for evaluation of generalized weakness. Patient states he has not been feeling well for some time . States that over the last 3 days he has been feeling weak with generalized fatigability. Also has been having difficulty walking long distances due to weakness/dyspnea. No history of asthma or COPD. Not on home inhalers. No history of CHF. No orthopnea, PND or leg edema. No cough. No fever or chills. Patient denies chest discomfort, palpitations, abdominal pain, changes in urinary or bowel habits Review of Systems Constitutional: Denies fever(s) and Denies weight loss Cardiovascular: Denies chest pain Respiratory: Denies cough and Denies hemoptysis Gastrointestinal: Denies abdominal pain, Denies diarrhea and Denies nausea Musculoskeletal: Denies back pain Denies focal weakness PMFSH Past Medical History Medical History (Updated 09/21/23 @ 10:16 by Joel Daniels MD) Dental caries Hypertension Mood disorder Social History Social History Household Members: Friend(s) Housing: House Do you presently have visiting nurse or other home services: No Patient Tobacco Use Status: Never used Tobacco Meds Allergies Allergy/AdvReac Type Severity Reaction Status Date / Time No Known Allergies Allergy Verified 09/20/23 11:29 Active Medications: Current Medications Acetaminophen (Acetaminophen 325 Mg Tablet) 650 mg PO Q6H PRN PRN Reason: Pain, Mild (Pain Scale 1-3), fever or headache Albuterol/Ipratropium (Albuterol/Iprat 2.5/0.5mg 3 Ml Ampul.Neb) 3 ml INHALE RQ4H WHILE AWAKE [facility]AN Last Admin: 09/21/23 11:41 Dose: 3 ml Albuterol/Ipratropium (Albuterol/Iprat 2.5/0.5mg 3 Ml Ampul.Neb) 3 ml INHALE Q4H PRN PRN Reason: Wheezing Amlodipine Besylate (Amlodipine Besylate 10 Mg Tablet) 10 mg PO DAILY [facility]; Protocol Last Admin: 09/21/23 08:23 Dose: 10 mg Bupropion HCl (Bupropion Hcl Xl 150 Mg Tab.Er.24h) 450 mg PO DAILY [facility] Last Admin: 09/21/23 08:23 Dose: 450 mg Calcium Carbonate (Calcium Carbonate 750 Mg Tab.Chew) 750 mg PO Q4H PRN PRN Reason: Heartburn Clonazepam (Clonazepam 1 Mg Tablet) 1 mg PO QID [facility] Last Admin: 09/21/23 08:23 Dose: 1 mg Enoxaparin Sodium (Enoxaparin Sodium 40 Mg/0.4 Ml Syringe) 40 mg SUBCUT Q24H [facility] Last Admin: 09/20/23 15:02 Dose: 40 mg Ampicillin Sodium/Sulbactam (Sodium 3 gm/ Sodium Chloride) 100 mls @ 200 mls/hr IV Q6H [facility] Last Infusion: 09/21/23 10:54 Dose: Infused Sodium Chloride (Ns) 1,000 mls @ 100 mls/hr IVCONT .Q10H [facility] Last Admin: 09/21/23 10:15 Dose: 100 mls/hr Lisinopril (Lisinopril 10 Mg Tablet) 10 mg PO DAILY [facility]; Protocol Last Admin: 09/21/23 08:23 Dose: 10 mg Magnesium Hydroxide (Milk Of Magnesia 30 Ml Oral.Susp) 30 ml PO DAILY PRN PRN Reason: Constipation Melatonin (Melatonin 3 Mg Tablet) 6 mg PO BEDTIME PRN PRN Reason: Insomnia Ondansetron HCl (Ondansetron Hcl 4 Mg/2 Ml Vial) 4 mg IVPUSH Q8H PRN PRN Reason: Nausea and Vomiting Sodium Chloride (0.9 % Sodium Chloride Flush 3 Ml Syringe) 3 ml IVFLUSH QSHIFT [facility] Last Admin: 09/21/23 08:25 Dose: 3 ml Home Medications ?Medication ?Instructions ?Recorded ?Confirmed ?Last Taken ?Type amlodipine 10 mg tablet 10 mg PO DAILY 09/20/23 09/20/23 09/20/23 08:00 History bupropion HCl 200 mg tablet,12 hr 200 mg PO BID 09/20/23 09/20/23 09/20/23 08:00 History sustained-release clonazepam 0.5 mg tablet 1 mg PO QID 09/20/23 09/20/23 09/20/23 08:00 History hydrochlorothiazide 25 mg tablet 25 mg PO DAILY 09/20/23 09/20/23 09/20/23 08:00 History lisinopril 10 mg tablet 10 mg PO DAILY 09/20/23 09/20/23 09/20/23 08:00 History Physical Exam Vital Signs: Last Vital Signs Temp 98 F 09/21/23 08:00 Pulse 100 09/21/23 11:41 Resp 12 09/21/23 11:41 BP 114/73 09/21/23 08:00 Pulse Ox 99 09/21/23 08:00 O2 Del Method Room Air 09/21/23 08:00 BMI result Body Mass Index 20.9 Awake. Comfortable. Neck is supple. Mucosa moist. Lungs clear Heart S1-S2 heard no gallop. Abdomen soft. Extremities no edema. No involuntary movements. No myoclonus. Results Lab Results 09/21/23 05:18 09/21/23 05:18 Lab results: Chemistry 09/20/23 09/20/23 09/21/23 12:03 19:09 05:18 Sodium 122 L 125 L 124 L Potassium 4.3 3.5 3.4 Carbon Dioxide 28 26 24 BUN 7 L 9 8 L Creatinine 0.88 0.84 0.69 Calcium 10.2 9.8 9.3 Hematology 09/20/23 09/21/23 12:03 05:18 WBC 7.3 6.8 Hgb 12.8 L 13.1 L Plt Count 176 279 D Urine Studies 09/20/23 19:06 Urine Osmolality 182 L Assessment and Plan (1) Hyponatremia: Status: Acute Plan Hypotonic hyponatremia. Low urine sodium suggestive of hypoperfusion. He was on hydrochlorothiazide which could have caused volume depletion and decreased free water clearance. Recommendations discontinue hydrochlorothiazide. Restrict oral free water intake to 1 L per 24 hours. Cautiously hydrate with normal saline at 75 cc/hour x2 L. Follow serum sodium every 4 hours Avoid rapid correction goal to correct serum sodium rate of 0.5-1 millimole per L/hr and not more than 10 millimoles in 24 hours. Procedures Date of Service Date of Service: 09/21/23
--- NOTE | 2023-09-21 13:20 | MHC.CM.PN ---
PT REPORTS HE SHARES A HOME WITH 4 ROOMMATES HE IS INDEPENDENT AT BASELINE AND WORKS PT SAYS HE GOES TO [facility] FOR [facility]IMARY CARE HE DECLINES TO COMPLETE A HCP IMM DELIVERED DCP: HOME NO SERVICES VIA PRIVATE TRANSPORT
[2023-09-21] MEDS: Enoxaparin Sodium 40 MG/0.4 ML SYRINGE SUBCUT (13:25)
[2023-09-21 15:23] VITALS: BP 105/60; PULSE 99; RESP 18; TEMP 36.8; O2SAT 97
[2023-09-21] MEDS: Acetaminophen 325 MG TABLET 650 MG PO (17:00)
[2023-09-21 19:23] VITALS: BP 91/52; PULSE 99; RESP 18; TEMP 37.3; O2SAT 97
[2023-09-21 20:03] LABS: Anion Gap 16 (12-20); Blood Urea Nitrogen 9 mg/dL (9-16); Calcium 8.8 mg/dL (8.4-10.2); Carbon Dioxide 27 mmol/L (22-29); Chloride 92 mmol/L (96-108); Creatinine Clr Calc Pharmacy 94.4; Estimated Glomerular Filt Rate > 60; Glucose Random 151 mg/dL (60-115); Potassium 3.7 mmol/L (3.3-5.1); Sodium 131 mmol/L (135-145)
[2023-09-22] VITALS (8 sets, daily range): BP systolic 104–118; BP diastolic 62–78; PULSE 84–101; RESP 16–19; TEMP 36.3–37; O2SAT 98–100
[2023-09-22] MEDS: Ampicillin Sodium/Sulbactam Na 3 GM in 0.9 % Sodium Chloride 100 ML IV ×4 (03:04→20:16)
[2023-09-22 07:41] LABS: Anion Gap 12 (12-20); Blood Urea Nitrogen 5 mg/dL (9-16); Calcium 9.2 mg/dL (8.4-10.2); Carbon Dioxide 26 mmol/L (22-29); Chloride 97 mmol/L (96-108); Creatinine Clr Calc Pharmacy 102.3; Estimated Glomerular Filt Rate > 60; Glucose Random 100 mg/dL (60-115); Potassium 3.5 mmol/L (3.3-5.1); Sodium 131 mmol/L (135-145)
[2023-09-22] MEDS: Albuterol/Iprat 2.5/0.5MG 3 ML AMPUL.NEB INHALE ×3 (08:23→20:14)
[2023-09-22] MEDS: clonazePAM 1 MG TABLET PO ×4 (09:18→20:20)
[2023-09-22] MEDS: 0.9 % Sodium Chloride 1,000 ML 100 ML IVCONT ×2 (09:18→20:19)
[2023-09-22] MEDS: Acetaminophen 325 MG TABLET 650 MG PO (09:19)
[2023-09-22] MEDS: buPROPion HCl XL 150 MG TAB.ER.24H 450 MG PO (09:19)
[2023-09-22] MEDS: amLODIPine Besylate 10 MG TABLET PO (09:19)
[2023-09-22] MEDS: lisinopriL 10 MG TABLET PO (09:19)
[2023-09-22] MEDS: 0.9 % Sodium Chloride Flush 3 ML SYRINGE IVFLUSH (09:20)
[2023-09-22] MEDS: Enoxaparin Sodium 40 MG/0.4 ML SYRINGE SUBCUT (12:58)
--- NOTE | 2023-09-22 15:05 | P.PNIM_ITS ---
Subjective Subjective Date of Service: 09/22/23 Interval History: Continues to improve overall. Essentially no facial pain Review of Systems Denies chest pain Denies shortness of breath Denies nausea vomiting diarrhea Denies fever chills Physical Exam 2 Vital Signs: Vital Signs: Last Vital Signs Temp 97.7 F 09/22/23 07:40 Pulse 84 09/22/23 08:24 Resp 18 09/22/23 08:24 BP 118/78 09/22/23 09:19 Pulse Ox 100 09/22/23 07:40 O2 Del Method Room Air 09/22/23 07:40 BMI result Body Mass Index 20.9 Const: Other: Awake alert no acute distress. HEENT: Other: Minimal facial swelling on left with mild submandibular erythema Resp: Other: Clear to auscultation bilaterally no rales rhonchi or wheezes Cardio: Other: No S4; positive S1-S2; no S3 murmurs rubs or gallops GI: Other: Soft nontender nondistended normoactive bowel sounds Extrem: Other: No edema bilaterally Objective Data Active Medications Acetaminophen (Acetaminophen 325 Mg Tablet) 650 mg PO Q6H PRN PRN Reason: Pain, Mild (Pain Scale 1-3), fever or headache Last Admin: 09/22/23 09:19 Dose: 650 mg Documented By: NADINE Albuterol/Ipratropium (Albuterol/Iprat 2.5/0.5mg 3 Ml Ampul.Neb) 3 ml INHALE RQ4H WHILE AWAKE [facility] Last Admin: 09/22/23 11:45 Dose: Not Given Documented By: GIULIANA Non-Admin Reason: Patient Asleep Albuterol/Ipratropium (Albuterol/Iprat 2.5/0.5mg 3 Ml Ampul.Neb) 3 ml INHALE Q4H PRN PRN Reason: Wheezing Amlodipine Besylate (Amlodipine Besylate 10 Mg Tablet) 10 mg PO DAILY [facility]; Protocol Last Admin: 09/22/23 09:19 Dose: 10 mg Documented By: NADINE Bupropion HCl (Bupropion Hcl Xl 150 Mg Tab.Er.24h) 450 mg PO DAILY [facility] Last Admin: 09/22/23 09:19 Dose: 450 mg Documented By: NADINE Calcium Carbonate (Calcium Carbonate 750 Mg Tab.Chew) 750 mg PO Q4H PRN PRN Reason: Heartburn Clonazepam (Clonazepam 1 Mg Tablet) 1 mg PO QID [facility] Last Admin: 09/22/23 12:58 Dose: 1 mg Documented By: NADINE Enoxaparin Sodium (Enoxaparin Sodium 40 Mg/0.4 Ml Syringe) 40 mg SUBCUT Q24H [facility] Last Admin: 09/22/23 12:58 Dose: 40 mg Documented By: NADINE Ampicillin Sodium/Sulbactam (Sodium 3 gm/ Sodium Chloride) 100 mls @ 200 mls/hr IV Q6H [facility] Last Infusion: 09/22/23 09:51 Dose: Infused Documented By: NADINE Sodium Chloride (Ns) 1,000 mls @ 100 mls/hr IVCONT .Q10H [facility] Last Admin: 09/22/23 09:18 Dose: 100 mls/hr Documented By: NADINE Lisinopril (Lisinopril 10 Mg Tablet) 10 mg PO DAILY [facility]; Protocol Last Admin: 09/22/23 09:19 Dose: 10 mg Documented By: NADINE Magnesium Hydroxide (Milk Of Magnesia 30 Ml Oral.Susp) 30 ml PO DAILY PRN PRN Reason: Constipation Melatonin (Melatonin 3 Mg Tablet) 6 mg PO BEDTIME PRN PRN Reason: Insomnia Ondansetron HCl (Ondansetron Hcl 4 Mg/2 Ml Vial) 4 mg IVPUSH Q8H PRN PRN Reason: Nausea and Vomiting Sodium Chloride (0.9 % Sodium Chloride Flush 3 Ml Syringe) 3 ml IVFLUSH QSHIFT [facility] Last Admin: 09/22/23 14:37 Dose: Not Given Documented By: NADINE Non-Admin Reason: IV Running Labs 09/21/23 05:18 09/22/23 06:14 Labs: Laboratory Results - last 24 hr 09/21/23 09/22/23 19:35 06:14 Anion Gap 16 12 Estim Creat Clear Calc 94.4 102.3 Estimated GFR > 60 > 60 Random Glucose 151 H 100 Calcium 8.8 9.2 Assessment and Plan (1) Dental caries: Status: Acute (2) Acute hyponatremia: Status: Acute Plan This is a 62-year-old male with pertinent history of mood disorder, hypertension who presents to the emergency department for evaluation of generalized weakness along with right facial swelling. Noted to have left-sided dental abscess 1.Hyponatremia -responding to volume repletion -follow renals and divalents -continue to hold thiazide; can be restarted as outpatient at PCP's discretion 2.Left facial cellulitis /left tooth infection -continues to improve on Unasyn -switch to Augmentin upon DC 3.Hypertension -hydrochlorothiazide in the setting of hyponatremia -can be restarted as outpatient PCP discretion Lovenox Full code Reason for continued hospitalization: close monitoring of serum sodium and IV antibiotics which is not possible in a lesser acute setting. Quality Stroke Does the patient have a stroke diagnosis?: No VTE Prior VTE?: No VTE Risk Level:: Medical - moderate - high VTE Device Contraindication: Treatment Not Indicated VTE Drug Contraindication: N/A - Med Ordered
[2023-09-23] MEDS: Ampicillin Sodium/Sulbactam Na 3 GM in 0.9 % Sodium Chloride 100 ML IV ×2 (03:11→09:46)
[2023-09-23 03:52] VITALS: BP 109/75; PULSE 90; RESP 20; TEMP 36.4; O2SAT 99
[2023-09-23] MEDS: 0.9 % Sodium Chloride 1,000 ML 100 ML IVCONT (06:19)
[2023-09-23 06:55] LABS: MANUAL DIFF FLAG NO
[2023-09-23 07:24] LABS: Alanine Aminotransferase 13 U/L (0-40); Albumin Level 3.7 g/dL (3.5-5.0); Alkaline Phosphatase 45 U/L (39-117); Anion Gap 12 (12-20); Aspartate Amino Transferase 18 U/L (5-37); Bilirubin Total 0.3 mg/dL (0.0-1.0); Blood Urea Nitrogen 4 mg/dL (9-16); Calcium 8.6 mg/dL (8.4-10.2); Carbon Dioxide 24 mmol/L (22-29); Chloride 102 mmol/L (96-108); Creatinine Clr Calc Pharmacy 94.4; Estimated Glomerular Filt Rate > 60; Glucose Fasting 115 mg/dL (60-99); Potassium 3.5 mmol/L (3.3-5.1); Sodium 134 mmol/L (135-145); Total Protein 6.4 g/dL (6.5-8.0)
[2023-09-23 07:41] LABS: Basophils Percent Auto 0.5 % (0-2); Eosinophils Percent Auto 0.8 % (0-4); Hemoglobin 11.3 g/dl (14.0-18.0); Imm Gran Abs Auto 0.01 X10*3/uL (0.00-0.03); Imm Gran Pct Auto 0.3 % (0.0-0.4); Lymphocytes Absolute Auto 1.4 X10*3/uL (1.2-4.9); Lymphocytes Percent Auto 35.6 % (20-40); Mean Corpuscular HGB Conc 35.3 g/dl (31.0-36.0); Mean Corpuscular Hemoglobin 33.6 pg (27.0-33.0); Mean Corpuscular Volume 95.2 fL (80.0-98.0); Mean Platelet Volume 8.5 fL (9.4-12.4); Monocytes Absolute Auto 0.5 X10*3/uL (0.1-1.2); Neutrophils Absolute Auto 1.9 x10*3/uL (2.0-8.3); Neutrophils Percent Auto 48.8 % (45-73); Platelet Count 307 X10*3/uL (160-400); Red Blood Count 3.36 X10*6/uL (4.60-5.80); Red Cell Distribution Width 12.8 % (11.0-16.0); White Blood Count 3.9 X10*3/uL (4.8-10.8)
[2023-09-23 08:00] VITALS: BP 136/92; PULSE 93; RESP 16; TEMP 36.4; O2SAT 100
[2023-09-23] MEDS: Albuterol/Iprat 2.5/0.5MG 3 ML AMPUL.NEB INHALE (08:12)
[2023-09-23 08:13] VITALS: PULSE 93; RESP 16; O2SAT 100
[2023-09-23 09:45] VITALS: BP 136/92
[2023-09-23] MEDS: amLODIPine Besylate 10 MG TABLET PO (09:45)
[2023-09-23] MEDS: buPROPion HCl XL 150 MG TAB.ER.24H 450 MG PO (09:45)
[2023-09-23] MEDS: clonazePAM 1 MG TABLET PO ×2 (09:45→12:55)
[2023-09-23 09:46] VITALS: BP 136/92
[2023-09-23] MEDS: lisinopriL 10 MG TABLET PO (09:46)
--- NOTE | 2023-09-23 13:01 | PM.DS ---
DS: Providers Provider Date of Service: 09/23/23 Date of admission: 09/20/23 13:07 Date of discharge: 09/23/23 Primary care physician: Unknown Physician Consults: 09/21/23 09:05 Consult to Nephrology Routine Consulting Provider: [facility] Reason for consultation: hyponatremia 09/21/23 09:09 Consult to General Surgery Routine Consulting Provider: [facility] Reason for consultation: ?left tooth abscess DS: Diagnosis Discharge Diagnosis (1) Dental caries: Status: Acute (2) Acute hyponatremia: Status: Acute DS: Summary Hospital Course Hospital Course: 62-year-old male with pertinent history of mood disorder, hypertension who presents to the emergency department for evaluation of generalized weakness. Patient states he has not been feeling well for some time . States that over the last 3 days he has been feeling weak with generalized fatigability. Also has been having difficulty walking long distances due to weakness/dyspnea. No history of asthma or COPD. Not on home inhalers. No history of CHF. No orthopnea, PND or leg edema. No cough. No fever or chills. Patient denies chest discomfort, palpitations, abdominal pain, changes in urinary or bowel habits. Hospital Course Admitted to general medical floor and started on Unasyn. Seen in consultation by General surgery who felt this was a primary dental issue and recommended completion of antibiotics and follow up with local dentist. CTA of the head and jaw failed to demonstrate any acute abscess. Over the next 48 hours patient's clinical course improved to the point where he could be switch to orals. He did have mild hyponatremia on admission but that resolved. At this point in time he is medically acceptable for discharge to follow up with his dentist and PCP next available Time Attestation Discharge Coordination Time (in mins): 35 Quality: Safe Use of Opioids Does Pt have an Active Cancer Diagnosis on the Problem List?: No Quality: Stroke Does the patient have a stroke diagnosis?: No Physical Exam Vital Signs: Vital Signs: Last Vital Signs Temp 97.6 F 09/23/23 08:00 Pulse 93 09/23/23 08:13 Resp 16 09/23/23 08:13 BP 136/92 H 09/23/23 09:46 Pulse Ox 100 09/23/23 08:00 O2 Del Method Room Air 09/23/23 08:00 BMI result Body Mass Index 20.9 Const: Other: Awake alert no acute distress. HEENT: Other: Minimal facial swelling on left with mild submandibular erythema Resp: Other: Clear to auscultation bilaterally no rales rhonchi or wheezes Cardio: Other: No S4; positive S1-S2; no S3 murmurs rubs or gallops GI: Other: Soft nontender nondistended normoactive bowel sounds Extrem: Other: No edema bilaterally DS: Data Data Completed and Pending Labs on day of discharge: Laboratory Results - last 24 hr 09/23/23 06:08 WBC 3.9 L RBC 3.36 L Hgb 11.3 L Hct 32.0 L MCV 95.2 D MCH 33.6 H MCHC 35.3 RDW 12.8 Plt Count 307 MPV 8.5 L Immature Gran % (Auto) 0.3 Neut % (Auto) 48.8 Lymph % (Auto) 35.6 [place] % (Auto) 14.0 H Eos % (Auto) 0.8 Baso % (Auto) 0.5 Lymph # (Auto) 1.4 [place] # (Auto) 0.5 Eos # (Auto) 0.0 Baso # (Auto) 0.0 Abs Immat Gran (auto) 0.01 Absolute Neuts (auto) 1.9 L Absolute Nucleated RBC 0.000 Nucleated RBC % (auto) 0.0 Sodium 134 L Potassium 3.5 Chloride 102 Carbon Dioxide 24 Anion Gap 12 BUN 4 L Creatinine 0.78 Estim Creat Clear Calc 94.4 Estimated GFR > 60 Fasting Glucose 115 H Calcium 8.6 D Total Bilirubin 0.3 AST 18 ALT 13 Alkaline Phosphatase 45 Total Protein 6.4 L Albumin 3.7 Discharge Plan Discharge Anticipated Discharge Date/Time: 09/23/23 12:56 Patient Disposition: Home, Self-Care Discharge Diagnosis: Dental Abcess Referrals: Physician,Unknown J [Primary Care Provider] - 1 Week Discharge Medications: New amoxicillin-pot clavulanate 875-125 mg tablet 1 tab PO BID Qty: 14 0RF Continued clonazepam 0.5 mg tablet 1 mg PO QID amlodipine 10 mg tablet 10 mg PO DAILY lisinopril 10 mg tablet 10 mg PO DAILY hydrochlorothiazide 25 mg tablet 25 mg PO DAILY bupropion HCl 200 mg tablet sustained-release 12 hr 200 mg PO BID Discharge Orders: Discharge Order (Routine); Ordered 09/23/23 Ordered By: Remy Uribe Diet: Advance to usual diet Activity on Discharge: As tolerated Stand Alone Forms: Patient Portal Discharge page Print Language: Lithuanian Care Plan Goals: Resume all pre-hospital medications. Health Concerns: Augmentin 875 twice daily for 1 week has been added to your regimen. Plan of Treatment: Call [facility] to arrange follow-up with dentist at next available appointment Assessment: See discharge summary
--- NOTE | 2023-09-23 13:07 | MHC.CM.PN ---
Patient medically cleared for dc home self care. Will transport home via [employer].
== END 2023-09-23 13:22 | disposition home or self-care (01) | DRG 641 ==
LOC: HO.ED 13:08 → HO.EDOVER 13:12 → HO.S3 09-21 06:18
PROVIDERS: Physician Assistant Medical; Admitting Provider Student in an Organized Health Care Education/Training Program; Emergency Provider Emergency Medicine Emergency Medical Services; Visit Provider Hospitalist
DX: E87.1 Hypo-osmolality and hyponatremia (principal); L03.211 Cellulitis of face; F39 Unspecified mood [affective] disorder; I10 Essential (primary) hypertension; T50.2X5A Adverse effect of carbonic-anhydrase inhibitors, benzothiadiazides and other diuretics, initial encounter; K02.9 Dental caries, unspecified; Z79.899 Other long term (current) drug therapy
CPT/HCPCS: 36415; 70487; 71046; 80048; 80053; 83880; 83930; 83935; 84300; 84443; 84484; 85025; 85379; 85610; 85730; 93005; 93306; 94640; 99285; J0295; J1650; J1885; Q9967

== ENCOUNTER → 2023-09-20 11:38 | Outpatient (BNV) | payer MEDICARE, MEDICAID, SELFPAY | PROVIDERS: Admitting Provider Student in an Organized Health Care Education/Training Program; Emergency Provider Emergency Medicine Emergency Medical Services; Visit Provider Internal Medicine Cardiovascular Disease | DX: R06.02 Shortness of breath (principal) | CPT/HCPCS: 93010 ==

== ENCOUNTER 2023-09-20 13:07 | Outpatient (BNV) | payer MEDICARE, MEDICAID, SELFPAY | END 2023-09-21 07:00 | PROVIDERS: Admitting Provider Student in an Organized Health Care Education/Training Program; Emergency Provider Emergency Medicine Emergency Medical Services; Visit Provider Internal Medicine Cardiovascular Disease | DX: R06.09 Other forms of dyspnea (principal) | CPT/HCPCS: 93306 ==

== ENCOUNTER → 2023-09-20 13:07 | Outpatient (BNV) | payer MEDICARE, MEDICAID, SELFPAY | PROVIDERS: Admitting Provider Student in an Organized Health Care Education/Training Program; Emergency Provider Emergency Medicine Emergency Medical Services; Visit Provider Surgery | DX: L03.211 Cellulitis of face (principal) | CPT/HCPCS: 99222 ==

== ENCOUNTER → 2023-09-20 13:07 | Outpatient (BNV) | payer MEDICARE, MEDICAID, SELFPAY | PROVIDERS: Admitting Provider Student in an Organized Health Care Education/Training Program; Emergency Provider Emergency Medicine Emergency Medical Services; Visit Provider Internal Medicine Hypertension Specialist | DX: E87.1 Hypo-osmolality and hyponatremia (principal) | CPT/HCPCS: 99223 ==

== ENCOUNTER → 2023-09-20 13:07 | Outpatient (BNV) | payer MEDICARE, MEDICAID, SELFPAY | PROVIDERS: Admitting Provider Student in an Organized Health Care Education/Training Program; Emergency Provider Emergency Medicine Emergency Medical Services; Visit Provider Student in an Organized Health Care Education/Training Program | DX: E87.1 Hypo-osmolality and hyponatremia (principal); L03.211 Cellulitis of face; F39 Unspecified mood [affective] disorder; I10 Essential (primary) hypertension | CPT/HCPCS: 99222; 99232; 99239 ==

== ENCOUNTER 2024-01-02 11:52 | Outpatient (REF) | payer MEDICARE, MEDICAID, SELFPAY ==
[2024-01-02 13:29] LABS: MANUAL DIFF FLAG NO
[2024-01-02 13:38] LABS: Basophils Percent Auto 0.2 % (0-2); Eosinophils Percent Auto 0.6 % (0-4); Hematocrit 41.6 % (42.0-52.0); Hemoglobin 14.8 g/dl (14.0-18.0); Imm Gran Abs Auto 0.02 X10*3/uL (0.00-0.03); Imm Gran Pct Auto 0.4 % (0.0-0.4); Lymphocytes Absolute Auto 1.8 X10*3/uL (1.2-4.9); Lymphocytes Percent Auto 37.1 % (20-40); Mean Corpuscular HGB Conc 35.6 g/dl (31.0-36.0); Mean Corpuscular Hemoglobin 33.8 pg (27.0-33.0); Mean Platelet Volume 8.3 fL (9.4-12.4); Monocytes Absolute Auto 0.5 X10*3/uL (0.1-1.2); Neutrophils Absolute Auto 2.5 x10*3/uL (2.0-8.3); Neutrophils Percent Auto 51.7 % (45-73); Platelet Count 284 X10*3/uL (160-400); Red Blood Count 4.38 X10*6/uL (4.60-5.80); Red Cell Distribution Width 11.7 % (11.0-16.0); White Blood Count 4.8 X10*3/uL (4.8-10.8)
[2024-01-02 13:44] LABS: Estimated Average Glucose 97 mg/dL; Hemoglobin A1C 113.7847 umol/L; Total Hemoglobin (HGBA1C) 3704.7039 umol/L
[2024-01-02 14:01] LABS: Alanine Aminotransferase 19 U/L (0-40); Albumin Level 4.1 g/dL (3.5-5.0); Alkaline Phosphatase 56 U/L (39-117); Anion Gap 12 (12-20); Aspartate Amino Transferase 28 U/L (5-37); Bilirubin Total 0.5 mg/dL (0.0-1.0); Blood Urea Nitrogen 7 mg/dL (9-16); Calcium 9.7 mg/dL (8.4-10.2); Carbon Dioxide 26 mmol/L (22-29); Chloride 102 mmol/L (96-108); Cholesterol 150 mg/dL (<200); Estimated Glomerular Filt Rate > 60; Glucose Random 94 mg/dL (60-115); HDL Cholesterol 86 mg/dL (>40); LDL Cholesterol Calculated 57 mg/dL (<100); Potassium 4.5 mmol/L (3.3-5.1); Sodium 135 mmol/L (135-145); Triglycerides 39 mg/dL (<150)
[2024-01-02 14:08] LABS: TSH reflex Free T4 1.87 uIU/mL (0.32-4.0); Vitamin D 25-OH Total 25.1 ng/mL (>30)
[2024-01-03 08:27] LABS: HIV AB/AG Nonreactive (Nonreactive); HIV Num 1 0.05 S/CO (0.00-0.99); ~HepC Num1 0.11 S/CO (0.00-0.79); ~Hepatitis C Antibody Nonreactive (Nonreactive)
== END 2024-01-02 11:53 | disposition home or self-care (01) ==
LOC: HO.HHCL 11:52
PROVIDERS: Visit Provider Internal Medicine
DX: E87.1 Hypo-osmolality and hyponatremia (principal); R79.9 Abnormal finding of blood chemistry, unspecified; F06.8 Other specified mental disorders due to known physiological condition; Z79.899 Other long term (current) drug therapy
CPT/HCPCS: 36415; 80053; 80061; 82306; 83036; 84443; 85025; 86803; 87389